=== PATIENT | male | born 1985 | race Caucasian/White ===

== ENCOUNTER 2019-06-10 08:37 | Emergency (ER) | payer OTHER ==
[~2019-06-10] VITALS: Ht 172.7 cm; Wt 90.7 kg
[~2019-06-10 08:37] MED LIST: KEFLEX500 M1 PO; PERCOCET 5-3251 EACH PO; ULTRAM 50MG TAB50 MG PO; VICODIN 5-5001 EACH PO
[2019-06-10 08:45] VITALS: BP 150/90
== END 2019-06-10 09:49 | disposition home or self-care (01) ==
LOC: M.ERS 08:37
DX: S05.02XA Injury of conjunctiva and corneal abrasion without foreign body, left eye, initial encounter (principal); F17.200 Nicotine dependence, unspecified, uncomplicated; Z88.5 Allergy status to narcotic agent; Z88.8 Allergy status to other drugs, medicaments and biological substances; W45.8XXA Other foreign body or object entering through skin, initial encounter; Y92.89 Other specified places as the place of occurrence of the external cause; Y93.89 Activity, other specified; Y99.8 Other external cause status